=== PATIENT | female | born 1980 | race African-American/Black ===

== ENCOUNTER 2017-04-01 05:23 | Inpatient (IN) | payer OTHER ==
[~2017-04-01 05:23] MED LIST: Bicitra 30 ML UDCUP PO SCH; Ondansetron HCl/PF 4 MG/2 ML Vial IVP PRN; Promethazine HCl 25 MG/ML VIAL IM PRN
[2017-04-01 05:49] VITALS: BMI 37.8
[2017-04-01] MEDS: Lactated Ringer's 1,000 ML IV SCH ×3 (06:00→17:38)
[2017-04-01 06:21] LABS: Hematocrit 46.3 % (36.0-47.0); Mean Platelet Volume 7.3 fL (7.4-10.4); Red Blood Cell (RBC) Count 5.09 mill/uL (4.20-5.40); White Blood Cell (WBC) Count 11.7 thou/uL (4.8-10.8)
[2017-04-01] MEDS ORDERED: Bicitra 30 ML UDCUP ONE (07:04)
[2017-04-01] MEDS ORDERED: PHENYLEPHRINE-NS 100 MCG/ML 10 ML SYRINGE ONE (07:25)
[2017-04-01] MEDS ORDERED: Dexamethasone 4 mg/ml Vial ONE (07:25)
[2017-04-01] MEDS ORDERED: ePHEDrine/0.9% NaCl/PF SYRINGE 50 mg/10 ml ONE (07:25)
[2017-04-01] MEDS ORDERED: Ketorolac Tromethamine 30 MG/ML VIAL ONE (07:25)
[2017-04-01] MEDS ORDERED: Oxytocin 10 UNITS/ML VIAL ONE (07:25)
[2017-04-01] MEDS ORDERED: Ondansetron HCl/PF 4 MG/2 ML Vial ONE (07:25)
[2017-04-01] MEDS ORDERED: Promethazine HCl 25 MG SUPP PR PRN (07:33)
[2017-04-01] MEDS ORDERED: Naloxone HCl 0.4 mg/ml Vial IVP PRN ×2 (07:33)
[2017-04-01] MEDS ORDERED: Eucerin (Mineral Oil/Petrolatum,White) 30 gm Jar TOP PRN (07:33)
[2017-04-01] MEDS ORDERED: Ondansetron HCl/PF 4 MG/2 ML Vial IVP PRN ×3 (07:33→10:53)
[2017-04-01] MEDS ORDERED: diphenhydrAMINE HCl 50 MG/ML 1 ML VIAL IVP PRN (07:33)
[2017-04-01] MEDS ORDERED: Meperidine HCl/PF 25 MG/ML VIAL SLOW IVP PRN (07:33)
[2017-04-01] MEDS ORDERED: Promethazine HCl 25 MG/ML VIAL IM PRN (07:33)
[2017-04-01] MEDS ORDERED: Ketorolac Tromethamine 30 MG/ML VIAL IVP PRN (07:33)
[2017-04-01] MEDS ORDERED: HYDROmorphone 2 MG/ML VIAL SLOW IVP PRN (07:33)
[2017-04-01] MEDS ORDERED: Naloxone HCl 0.4 mg/ml Vial IV PRN (07:33)
[2017-04-01] MEDS ORDERED: Ketorolac Tromethamine 30 MG/ML VIAL IVP SCH (07:45)
[2017-04-01] MEDS ORDERED: Communication Order-Pharmacy FS SCH (07:45)
[2017-04-01] MEDS ORDERED: Fentanyl 100 MCG/2 ML VIAL ONE (07:57)
[2017-04-01] MEDS ORDERED: Succinylcholine Chloride 20 MG/ML 10 ml SYRINGE FS ONE (07:58)
[2017-04-01] MEDS ORDERED: Diprivan 0 ML ONE (07:58)
[2017-04-01] MEDS ORDERED: Esmolol 100 MG/10 ML VIAL ONE (08:06)
[2017-04-01] MEDS ORDERED: LR / Pitocin 40 units/1000 ml 1,000 ML ONE (10:36)
[2017-04-01] MEDS ORDERED: LR w/ Pitocin 40 units/1000 ML BAG IV SCH (10:53)
[2017-04-01] MEDS ORDERED: Acetaminophen 325 MG TAB PO PRN (10:53)
[2017-04-01] MEDS ORDERED: Acetaminophen 1,000 MG in Premix Bag 1 BAG IVPB PRN (13:35)
--- NOTE | 2017-04-01 19:36 | OP-2 ---
DATE OF PROCEDURE: 04/01/2017 RESIDENT SURGEON: Juanito Blas M.D. AUTOM[employer]IVE GENERAL MANAGER SURGEON: Yesy Mazariegos M.D. ATTENDING SURGEON: Clare Stephen D.O. PROCEDURE PERFORMED: Elective repeat low transverse indicated for 2 prior sections. PREOPERATIVE DIAGNOSES: 1. Term intrauterine . 2. Previous . 3. Gestational diabetes - diet controlled. POSTOPERATIVE DIAGNOSES: 1. Term intrauterine . 2. Previous . 3. Gestational diabetes - diet controlled. ANESTHESIA: Spinal. INDICATIONS: The patient is a 37-year-old G4, P2-0-1-2 at 39.0 weeks gestation who presents for elective repeat section. PROCEDURE IN DETAIL: The risks, benefits, and alternatives were explained to the patient and she gave informed consent. Preoperative antibiotics of cefazolin 2 grams IV were administered. The patient was taken to the operating room and spinal anesthesia was initiated. She was placed in supine position with left lateral tilt and prepped and draped in the usual sterile fashion. Pfannenstiel incision was made with scalpel and carried down to the level of fascia, which was sharply nicked. The fascia was cut and extended bilaterally with Roldan scissors. Superior and inferior edges of the cut fascia were elevated with Mukesh clamps and the underlying muscles were sharply and bluntly dissected free. The recti were divided digitally and retracted manually. Peritoneum was entered using Metzenbaum scissors and retracted manually. Bladder blade was placed. Bladder flap was created with Metzenbaum scissors. The bladder blade was then repositioned. Low transverse score was made with a scalpel and the uterus was entered in the midline with the scalpel. Clear fluid was seen. Hysterotomy was extended manually. The infant was noted to be in vertex position, but was presenting occiput transverse. The was initially attempted to be delivered using fundal pressure and with manual head elevation. After 3 attempts at this, a sterile vacuum was brought into the field and the was delivered easily with the assistance of vacuum. Vacuum was on for less than 20 minutes. No pop offs occurred. The mouth and nares were bulb suctioned. Cord was clamped and cut. A grossly normal male infant was handed to the awaiting team. Cord blood was obtained. Placenta was manually extracted and found to be intact with 3-vessel cord and later discarded. The uterus was externalized and the endometrium was curetted with dry lap. Bladder blade was replaced and the uterus was closed using a running 1-0 Monocryl suture. One [id number] stitch was placed near the midline of the hysterotomy to control additional bleeding using the same stitch. Hysterotomy was noted to be oozing and was controlled using Bovie cautery. The adnexa were inspected and found to be free of adhesions. The abdomen was irrigated with saline and suctioned free of clots. The uterus was internalized and the hysterotomy was inspected again. Hysterotomy was still noted to be hemostatic. The fascia was closed using running nonlocking Vicryl suture. Subcutaneous tissue was irrigated and there were no bleeding vessels noted. The subcutaneous fat was closed using three simple interrupted Vicryl sutures. The skin was closed using a 4-0 Monocryl running suture. Dermabond was placed over the incision. All counts were correct x3. The patient tolerated the procedure well and was taken to the recovery room in stable condition. ESTIMATED BLOOD LOSS: 700 mL COMPLICATIONS: Vacuum assisted delivery. SPECIMENS: Cord blood sent to lab for blood type. FINDINGS: Grossly normal male infant with Apgars of 1, 8 and 9 at 1, 5, 10 minutes respectively. Grossly normal placenta with three-vessel cord discarded. DRAINS: Rachel to gravity draining clear urine. Dr. Clare Stephen was present for the entire procedure. [facility] CENTERDanie
[2017-04-01] MEDS ORDERED: HYDROcodone/Acetaminophen 5/325 mg Tablet PO PRN (19:45)
[2017-04-02 05:56] LABS: Hematocrit 34.3 % (36.0-47.0); Mean Platelet Volume 7.7 fL (7.4-10.4); Red Blood Cell (RBC) Count 3.67 mill/uL (4.20-5.40); White Blood Cell (WBC) Count 16.1 thou/uL (4.8-10.8)
--- NOTE | 2017-04-02 08:55 | PDOC.PP ---
Post Progress Note Post Day #: 1 -: Doing well this AM. No N/V/D. Pain well controlled. PO intake tolerated: yes Flatus: yes Ambulation: yes Vital Signs (12 hours) Temp Pulse Resp BP 04/02/17 08:48 98.2 F 104 H 20 118/58 L 04/02/17 04:00 99.0 F 97 18 133/70 04/02/17 00:15 98.5 F 90 18 125/74 Weight Weight 90.718 kg - Physical Examination General: NAD Cardiovascular: no m/r/g, RRR Respiratory: clear to ausculation bilateral Abdominal: + bowel sounds, lochia (wnl), no distention, appropriately TTP Fundus firm & at: at umbilicus Extremities: negative homans (B) Skin: no rash Neurological: no gross focal deficits Psychiatric: normal affect Result Diagrams: 04/02/17 04:51 04/01/17 06:00 Additional Labs: Post Labs Blood Type B POSITIVE 04/01/17 06:00 Hep Bs Antigen Non-Reactive S/CO (NonReactive) 04/01/17 06:00 (1) delivery, delivered, current hospitalization Code(s): O82 - ENCOUNTER FOR DELIVERY WITHOUT INDICATION Status: Acute Comment: - that delivered luci [facility] on 04/01/2018 @ 08:18 -Patient doing well this AM; Pain well controlled - contraception; need to discuss with patient -Patient bottle feeding -Desires circumscision for infant -VSS; continue routine care -Encourage ambulation -Incision site clean, dry and intact (2) DM (diabetes mellitus), gestational, delivered Code(s): O24.429 - GESTATIONAL DIABETES MELLITUS IN CHILDBIRTH, UNSP CONTROL Status: Acute Comment: -Delivered via [facility] on 04/01/2017 -Consider checking fasting glucose one time -Fasting glucose 79 prior to C/S <Renee Bowling - Last Filed: 04/02/17 08:50> Vital Signs (12 hours) Temp Pulse Resp BP 04/02/17 20:00 98.1 F 88 16 125/81 04/02/17 16:00 98.4 F 95 18 04/02/17 13:10 98.4 F 95 18 120/73 Weight Weight 90.718 kg Result Diagrams: 04/02/17 04:51 04/01/17 06:00 Additional Labs: Post Labs Blood Type B POSITIVE 04/01/17 06:00 Hep Bs Antigen Non-Reactive S/CO (NonReactive) 04/01/17 06:00 <Yesy Mazariegos - Last Filed: 04/03/17 00:17> Attending Addendum - Attending Addendum I personally evaluated the patient and discussed the management with Dr. Bowling on 04/02/17 I agree with the History, Examination, Assessment and Plan documented above with any addition or exceptions noted below- Patient without complaints. Pain well controlled. Ambulating in room. Afebrile VSS. 1) POD#1 s/p repeat - H?H stable; continue routine postop care. <Yesy Mazariegos - Last Filed: 04/03/17 00:17>
[2017-04-02] MEDS: Ibuprofen 800 MG TAB PO SCH ×2 (14:16→22:45)
[2017-04-02] MEDS: Prenatal Vitamin 1 TAB PO SCH (14:17)
[2017-04-03] MEDS: Ibuprofen 800 MG TAB PO SCH ×4 (01:24→22:19)
[2017-04-03] MEDS: Prenatal Vitamin 1 TAB PO SCH (07:55)
--- NOTE | 2017-04-03 08:38 | PDOC.PP ---
Post Progress Note Post Day #: 2 -: No N/V/D. Pain well controlled. Worried about infant who is in NICU. PO intake tolerated: yes Flatus: yes Ambulation: yes Vital Signs (12 hours) Temp Pulse Resp BP 04/03/17 08:11 98.0 F 89 20 129/81 04/03/17 04:45 98.6 F 95 20 04/03/17 00:55 98.6 F 95 20 135/84 Weight Weight 90.718 kg - Physical Examination General: NAD Cardiovascular: RRR Deviation from normal: 2/6 systolic murmur Respiratory: clear to ausculation bilateral Abdominal: + bowel sounds, lochia (wnl), no distention, appropriately TTP Fundus firm & at: umbilicus Extremities: negative homans (B) Skin: no rash Neurological: no gross focal deficits Psychiatric: normal affect Result Diagrams: 04/02/17 04:51 04/01/17 06:00 Additional Labs: Post Labs Blood Type B POSITIVE 04/01/17 06:00 Hep Bs Antigen Non-Reactive S/CO (NonReactive) 04/01/17 06:00 (1) delivery, delivered, current hospitalization Code(s): O82 - ENCOUNTER FOR DELIVERY WITHOUT INDICATION Status: Acute Comment: - that delivered lcui [facility] on 04/01/2018 @ 08:18 -GDM diet controlled -Patient doing well this AM; Pain well controlled -Patient bottle feeding - in NICU d/t tachypnea; mother is worried about . Will update her regarding status of as often as possible -Desires circumscision for infant; may need to get as outpatient d/t persistent TTN -VSS; continue routine care -Incision site clean, dry and intact -Continue routine care -Consider bed and breakfast program for patient, since is in NICU (2) DM (diabetes mellitus), gestational, delivered Code(s): O24.429 - GESTATIONAL DIABETES MELLITUS IN CHILDBIRTH, UNSP CONTROL Status: Acute Comment: -Delivered via [facility] on 04/01/2017 -Consider checking fasting glucose one time -Fasting glucose 79 prior to C/S <Renee Bowling - Last Filed: 04/03/17 08:41> Weight Weight 90.718 kg Result Diagrams: 04/02/17 04:51 09/19/17 06:00 Additional Labs: Post Labs Blood Type B POSITIVE 04/01/17 06:00 Hep Bs Antigen Non-Reactive S/CO (NonReactive) 04/01/17 06:00 <Yesy Mazariegos - Last Filed: 04/04/17 08:07> Attending Addendum - Attending Addendum I personally evaluated the patient and discussed the management with Dr. Bowling I agree with the History, Examination, Assessment and Plan documented above with any addition or exceptions noted below- Patient without complaints. Ambulating. Tolerating diet. Afebrile VSS. 1) POD #2 s/p repeat C/section- Continue routine care. <Yesy Mazariegos - Last Filed: 04/04/17 08:07>
[2017-04-03] MEDS: HYDROcodone/Acetaminophen 5/325 mg Tablet PO PRN (21:50)
[2017-04-04] MEDS: HYDROcodone/Acetaminophen 5/325 mg Tablet PO PRN ×4 (02:39→17:09)
[2017-04-04] MEDS: Ibuprofen 800 MG TAB PO SCH ×2 (06:20→14:15)
[2017-04-04 08:30] VITALS: BP 120/68; TEMP 97.9
[2017-04-04] MEDS: Prenatal Vitamin 1 TAB PO SCH (09:02)
--- NOTE | 2017-04-04 12:01 | PDOC.PP ---
Post Progress Note Post Day #: 3 -: No N/V/D. Pain well controlled. PO intake tolerated: yes Flatus: yes Ambulation: yes Vital Signs (12 hours) Temp Pulse Resp BP 04/04/17 08:30 97.9 F 77 20 120/68 04/04/17 08:05 97.9 F 77 20 Weight Weight 90.718 kg - Physical Examination General: NAD Cardiovascular: no m/r/g, RRR Respiratory: clear to ausculation bilateral Abdominal: + bowel sounds, lochia (wnl), no distention, appropriately TTP Fundus firm & at: Below umbilicus Extremities: negative homans (B) Skin: no rash Neurological: no gross focal deficits Psychiatric: normal affect Result Diagrams: 04/02/17 04:51 04/01/17 06:00 Additional Labs: Post Labs Blood Type B POSITIVE 04/01/17 06:00 Hep Bs Antigen Non-Reactive S/CO (NonReactive) 04/01/17 06:00 (1) delivery, delivered, current hospitalization Code(s): O82 - ENCOUNTER FOR DELIVERY WITHOUT INDICATION Status: Acute Comment: - that delivered luci [facility] on 04/01/2018 @ 08:18 -GDM; diet controlled -Infant in NICU d/t tachypnea; tachypnea has resolved. Talked to fish flipper about deescalating care to nursery with potential discharge home -Consider circumscion as outopatient -VSS -Incision site clean, dry and intact -Continue routine care -Discharge patient and place on bed and breakfast program since patient has infant in NICU (2) DM (diabetes mellitus), gestational, delivered Code(s): O24.429 - GESTATIONAL DIABETES MELLITUS IN CHILDBIRTH, UNSP CONTROL Status: Acute Comment: -Delivered via [facility] on 04/01/2017 -Fasting glucose 79 prior to C/S -Diet controlled GDM <Renee Bowling - Last Filed: 04/04/17 11:58> Weight Weight 90.718 kg Result Diagrams: 04/02/17 04:51 04/01/17 06:00 Additional Labs: Post Labs Blood Type B POSITIVE 04/01/17 06:00 Hep Bs Antigen Non-Reactive S/CO (NonReactive) 04/01/17 06:00 <Yesy Mazariegos - Last Filed: 04/04/17 20:34> Attending Addendum - Attending Addendum I personally evaluated the patient and discussed the management with Dr. Bowling I agree with the History, Examination, Assessment and Plan documented above with any addition or exceptions noted below- Patient without complaints. Ambulating without difficulty. Tolerating regular diet. Afebrile VSS 1) POD #3 s /p repeat - plan to d/c home today. <Yesy Mazariegos - Last Filed: 04/04/17 20:34>
== END 2017-04-04 17:15 | disposition home or self-care (01) | DRG 766 ==
LOC: L&D 05:23 → 3SW 12:55
PROVIDERS: ADMIT Family Medicine; ATTEND Family Medicine
PROC: 10D00Z1 Extraction of Products of Conception, Low, Open Approach (ICD-10-PCS; principal; 2017-04-01)
DX: O24.420 Gestational diabetes mellitus in childbirth, diet controlled (principal); Z37.0 Single live birth; Z3A.39 39 weeks gestation of pregnancy
CPT/HCPCS: 36415; 82947; 85027; 86780; 86850; 86900; 86901; 87340; J0131; J1100; J1885; J2274; J2405; J2590; J2704; J3010

== ENCOUNTER 2020-03-03 20:32 | Emergency (ER) | payer OTHER, SELFPAY ==
[2020-03-03 21:11] LABS: #Basophils 0.1 thou/uL (0.0-0.2); #Eosinphils 0.3 thou/uL (0.0-0.7); #Lymphocytes 3.2 thou/uL (1.20-3.40); #Monocytes 0.6 thou/uL (0.11-0.59); #Neutrophils 3.2 thou/uL (1.40-6.50); %Basophils 1.9 % (0.0-1.0); %Eosinophils 3.4 % (0.0-10.0); %Lymphocytes 43.4 % (21.0-51.0); %Monocytes 7.6 % (0.0-10.0); %Neutrophils 43.6 % (42.0-75.0); Hemoglobin 13.8 g/dL (12.0-16.0); Mean Corpuscular HGB CONC 31.8 g/dL (32.0-36.0); Mean Corpuscular Hemoglobin 28.2 pg (27.0-31.0); Mean Corpuscular Volume 88.8 fL (78.0-98.0); Mean Platelet Volume 7.4 fL (7.4-10.4); Platelet Count 334 thou/uL (130-400); RBC Distribution Width 11.4 % (11.5-14.5); Red Blood Cell (RBC) Count 4.87 mill/uL (4.20-5.40); White Blood Cell (WBC) Count 7.3 thou/uL (4.8-10.8)
--- NOTE | 2020-03-03 21:15 | RAD ---
XR Chest 1 View Portable HISTORY: Chest pain, dizziness, weakness COMPARISON: None FINDINGS: The heart size is normal. The lungs are well expanded without focal areas of consolidation, pneumothorax or pleural effusions. IMPRESSION: No radiographic evidence of acute cardiopulmonary process.
[2020-03-03 21:30] LABS: ALT (SGPT) 13 U/L (8-55); AST (SGOT) 19 U/L (5-34); Albumin 4.4 g/dL (3.5-5.0); Alkaline Phosphatase 90 U/L (40-110); Anion Gap 14 mmol/L (10-20); BUN (Urea Nitrogen) 11 mg/dL (7.0-18.7); Bilirubin, Total 0.3 mg/dL (0.2-1.2); Calc. Creatinine Clearance 0 mL/min (70-130); Calcium 9.4 mg/dL (7.8-10.44); Carbon Dioxide 26 mmol/L (22-29); Chloride 103 mmol/L (98-107); Estimated GFR-MDRD Greater than 90; Globulin 3.5 g/dL (2.4-3.5); Glucose 103 mg/dL (70-105); Potassium 3.5 mmol/L (3.5-5.1); Protein, Total 7.9 g/dL (6.0-8.3); Sodium 139 mmol/L (136-145)
[2020-03-03 22:28] LABS: BHCG - Serum Negative (NEGATIVE); Pregs Control Background? CLEAR/WHITE (CLR/WHITE); Pregs Control Bar Appear? YES (CONTROL BAR)
--- NOTE | 2020-03-11 15:19 | EKG ---
Test Reason : DIZZINESS Blood Pressure : / mmHG Vent. Rate : 096 BPM Atrial Rate : 096 BPM P-R Int : 210 ms QRS Dur : 074 ms QT Int : 336 ms P-R-T Axes : 067 020 036 degrees QTc Int : 424 ms Sinus rhythm with 1st degree A-V block Possible Left atrial enlargement Borderline ECG Confirmed by MARIEL GLOVER DO ([id number]), news assignment editor MURRAY RUSH ([id number]) on 03/11/2020 3:19:13 PM Referred By: Confirmed By:MARIEL GLOVER DO
== END 2020-03-03 22:42 | disposition home or self-care (01) ==
LOC: ERS 20:32
DX: R07.89 Other chest pain (principal)
CPT/HCPCS: 71045; 80053; 83690; 84484; 84703; 85025; 85379; 93005